=== PATIENT | male | born 1990 | race Caucasian/White ===

== ENCOUNTER → 2016-12-16 | Outpatient (CLI) | payer BC ==
--- NOTE | 2016-12-16 16:42 | DX ---
Left Shoulder, 2 views History: Follow-up left clavicle, date of injury January 24, 2016, date of surgery October 30, 2016 Comparison: April 08, 2016 Findings: A distal left clavicle orthopedic fixation plate and compression screws have been removed. The distal left clavicular fracture is solidly healed. The AC joint is normally aligned. The humeral head is normally aligned in the glenoid. Impression: Excellent healing of the distal clavicle fracture.
== END ==
LOC: BMCIMAGING 15:28
PROVIDERS: ATTEND Physician Assistant
DX: S42.032D Displaced fracture of lateral end of left clavicle, subsequent encounter for fracture with routine healing (principal)